=== PATIENT | male | born 1980 | race Two or more races ===

== ENCOUNTER 2025-10-14 15:07 | Outpatient (AMB) | payer OTHER, SELFPAY ==
--- NOTE | 2025-10-14 15:12 | A.PHYSOV_ITS ---
Vital Signs 10/14/25 15:33 Height 5 ft 11 in Weight 205 lb BMI 28.6 Intake Visit Reasons: Wants back inj-last seen almost 6M ago Intake Note: Patient is a 45year old male here today for back pain. 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 He reports that a prior injection provided good pain relief for approximately 7 months, but the pain returned about a month ago. He describes the pain as being in the same location as before, affecting both sides of his lower back. He underwent left L3 -4, L4-5 facet injection with 100% reduction of his pain for 7 months. His pain has returned despite performing her physician directed home exercise plan and using his medications as prescribed. The pain worsens with sitting and bending forward, and he rates his current pain as fluctuating between a 6 out of 10. He has a history of being borderline diabetic. The patient expresses a preference to avoid taking many pills and mentions not wanting to take gabapentin from his regular doctor. He states that [id number] medications like ibuprofen, Motrin, and Tylenol are ineffective for his back pain, though ibuprofen helps his headaches. 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 Pain Description - Onset: The pain recurred about one month ago, after a 7-month period of relief from a previous injection. - Location: Bilateral low back, in the same location as his previous pain. - Severity: The pain level fluctuates between 4, 5, and 6 out of 10. - Exacerbating Factors: Pain is worsened by sitting and bending forward. - Relieving Factors: Leaning backward does not make the pain worse. - Interference with Activities: The pain impacts his ability to perform his job, which involves 12-hour shifts. Procedure: left L3-4, L4-5 facet injection 100% reduction of his pain [facility] Surgical History H/O shoulder surgery History of cholecystectomy Social History Alcohol intake: current Alcohol intake frequency: does not drink Patient Tobacco Use Status: Never used Tobacco Use of substances other than those prescribed or required for medical reasons: Yes Review of Systems Narrative Review of Systems - Musculoskeletal: Reports bilateral low back pain, which is exacerbated by sitting and bending forward. - Endocrine: Reports being borderline diabetic. - Neurological: Reports occasional headaches, which are relieved by ibuprofen. - All other systems were reviewed and are negative. Physical Exam Exam Exam: Physical Exam Lumbar Spine: Examination of his lumbar spine, there is no visible swelling or deformity. He is tender to lower lumbar facets. He does have an increase in pain with facet loading. Special Tests: Lhermittes sign was negative Heel Toe walk is normal Left straight leg raise: Negative Right straight leg raise: Negative Special tests Erika test is negative Ganslen's test is negative SI Joint compression test negative Bell test negative Piriformis stretch is negative Lower Extremities: Full range of motion bilateral lower extremities. No calf pain or edema. Neuro: Sensation: Intact to lower extremities bilaterally Strength L2 (Psoas): 5/5 on the left and 5/5 on the right. L3 (Quads): 5/5 on the left and 5/5 on the right. L4 (Ant tibialis): 5/5 on the left and 5/5 on the right. L5 (EHL) 5/5 on the left and 5/5 on the right. S1 (Gastroc): 5/5 on the left and 5/5 on the right. DTR L4: (Patellar) Left 2 Right 2 S1: (Achilles) Left 2 Right 2 Babinski Downgoing No pathologic clonus. No involuntary movement. Vital Signs: BMI result Body Mass Index 28.6 Assessment & Plan Assessment & Plan (1) Vertebrogenic low back pain: Code(s): M54.51 - Vertebrogenic low back pain Category: Medical (2) Lumbar spondylosis: Code(s): M47.816 - Spondylosis without myelopathy or radiculopathy, lumbar region Category: Medical Plan Pain Management - Analgesia: Current pain level is reported as fluctuating between 4 and 6 out of 10. - A previous injection provided relief for 7 months. - Ibuprofen and Tylenol are reported as ineffective for his back pain. - Activities of Daily Living: The pain is affecting his ability to work his 12- hour shifts. - Adverse Effects: Not discussed. - Aberrant Drug-Related Behaviors: None noted; the patient expresses a desire to avoid taking many pills and refused gabapentin from his primary doctor. - Affect: Not explicitly discussed. Plan Patient was informed and verbally consented to the use of an ambient scribe for clinic note documentation during this visit. 1. Low Back Pain The patient presents with recurrent bilateral low back pain consistent with his prior presentation. Given the good, albeit temporary, relief from his prior injection, a repeat procedure is indicated. The plan is to proceed with bilateral lumbar injections L3-4, L4-5. We will first obtain insurance authorization for the procedure, which is expected within the week. To manage his pain until the injection can be scheduled, a tapering course of oral prednisone will be prescribed. The patient was instructed not to take ibuprofen with the prednisone. The possibility of radiofrequency ablation was briefly discussed as a future option, though it was noted this would take longer to arrange. A follow-up visit is scheduled for three weeks post-injection, which the patient may cancel if he is feeling better. 2. Prediabetes The patient's self-reported history of being borderline diabetic was noted. This was taken into consideration with the decision to prescribe a short course of oral steroids. Discussion Notes I discussed with the patient that his low back pain has recurred after about seven months of relief from his last injection. We reviewed that the pain is now on both sides, and I recommended proceeding with bilateral lumbar injections, explaining this would involve four shots instead of two. I informed him that we cannot perform the procedure today and must first obtain insurance authorization, which should be received this week, with scheduling to follow. To provide interim relief, I recommended a tapering course of oral prednisone and advised him not to take it with any ibuprofen. We briefly discussed radiofrequency ablation as a longer-term option but agreed it would take more time to arrange. My staff will contact him to schedule the injection once approved. A follow-up is set for three weeks after the procedure, but I told him he can cancel it if he is feeling significantly better. Patient Instructions - We will schedule you for injections in both sides of your lower back for your pain. - Our office will need to get approval from your insurance first, and then we will call you to schedule the procedure. - I have sent a prescription for Prednisone, a steroid pill, to your pharmacy to help with pain until your injection. - Take the prednisone as instructed: 3 pills for 3 days, then 2 pills for 3 days, and finally 1 pill for 3 days. - Do not take any ibuprofen (Advil, Motrin) while you are taking the prednisone. - You have a follow-up appointment in three weeks, but you can call our office to cancel it if your pain is better after the injections. Medications: New prednisone 3 tabs po for 3 days, 2 tabs po for 3 days, 1 tab po for 3 days 20 mg PO DAILY 28 tabs 0RF 9 days M47.816 - Spondylosis without myelopathy or radiculopathy, lumbar region, M54.51 - Vertebrogenic low back pain Coding Level of Care Code Tele Est Pt Level 4 (62548) Diagnoses Vertebrogenic low back pain M54.51 Lumbar spondylosis M47.816
[2025-10-14 15:33] VITALS: BMI 28.6
--- OUTSIDE RECORDS SUMMARY | 2025-10-15 00:38 | XMS_ITS | Clinical Summary ---
Author Organization [facility] Address [address] [place] [address] Care Team Providers Care Channel Opener Name Role Phone Albert Salazar Primary Care Provider [phone] Albert Salazar Unavailable Allergies No known active allergies Medications metFORMIN (FORTAMET) 500 mg 24 hr tabletIndicatio ns:Type 2 diabetes mellitus without complication, without long-term current use of insulin (CMS/HCC) Take 1 tablet (500 mg total) by mouth twice a day. Do not crush, chew, or split. 60 tablet 1 01/08/2020 Active cephALEXin (Keflex) 500 mg capsuleIndicati ons:Scrotal abscess Take 1 capsule (500 mg total) by mouth 2 (two) times a day. 20 capsule 07/07/2020 Active Active Problems Problem Noted Date Diagnosed Date Elevated glucose level 01/03/2020 Upper respiratory tract infection 01/02/2020 Immunizations Immunization Administration Dates Next Due Tdap 05/25/2017 Family History Medical History Relation Comments Diabetes Brother 1 Cancer Mother Diabetes Mother Hypertension Mother Diabetes Sister 1 Hypertension Sister 2 Relation Status Comments Brother 1 Brother 2 Alive Daughter Alive Father Father's Brother Alive Father's Sister Alive Maternal Grandfather Alive Maternal Grandmother Alive Mother Alive Mother's Brother Alive Mother's Sister Alive Paternal Grandfather Alive Paternal Grandmother Alive Sister 1 Sister 2 Son Alive Social History Tobacco Use Types Packs/Day Years Used Date Smoking Tobacco: Every Day Cigarettes Smokeless Tobacco: Never Tobacco Cessation:Ready to Q uit: No; Counseling Given: Yes Alcohol Use Standard Drinks/Week Comments Yes 0 (1 standard drink = 0.6 oz pur e alcohol) AUDIT-C Answer Date Recorded Q1: How often do you have a drink containing alc ohol? 2-4 times a month 07/10/2020 Average Number of Drinks Not on file 020 Frequency of Binge Drinking Not on file 01/2020 Sex and Gender Information Value Date Recorded Sex Assigned at Not on file Legal Sex Male 12:26 PM MST Gender Identity Not on file Sexual Orientation Not on file Last Filed Vital Signs Vital Sign Reading Time Taken Comments Blood Pressure 134/85 07/10/2020 9:56 AM EDT Pulse 77 07/10/2020 9:56 AM EDT Temperature 36.3 C (97.3 F) 07/10/2020 9:56 AM EDT Respiratory Rate 16 07/10/2020 9:56 AM EDT Oxygen Saturation 98% 07/10/2020 9:56 AM EDT Inhaled Oxygen Concentration - - Weight 90.4 kg (199 lb 3.2 oz) 07/10/2020 9:56 A M EDT Height 182.3 cm (5' 11.77 ) 07/07/2020 10:51 AM EDT Body Mass Index 27.19 07/07/2020 10:51 AM EDT Plan of Treatment Health Maintenance Due Date Last Done Comments Hepatitis C Screening 1982 MMR Vaccines (1 of 1 - Standard series) 1983 PHQ-9 Depression Screen 1994 Varicella Vaccines (1 of 2 - 13+ 2-dose series) 1995 Complete Annual HRA 2000 JOSE ANGEL-7 Anxiety Screen 2000 Hepatitis B Vaccines (1 of 3 - 19+ 3-dose series) 2001 Annual Preventive Exam 01/02/2021 01/02/2020, 2018 COVID-19 Vaccine ( - 2023- season) 2025 Influenza Vaccine (#1) 2025 DTaP,Tdap,and Td Vaccines (2 - Td or Tdap) 05/25/2027 05/25/2017 RSV Vaccine (SCDM) (1 - 1-dose 75+ series) 2057 Insurance [employer] Care Teams Channel Opener Relationship Specialty Start Date End Date Albert Salazar PA [address] [place] [address] PCP - General Family Medicine 07/07/20 Albert Salazar PA [address] [place] [address] Family Medicine 07/07/20
--- OUTSIDE RECORDS SUMMARY | 2025-10-15 00:38 | XMS_ITS | Clinical Summary ---
Author Organization [facility] Address [address] [place] [address] Phone Care Team Providers Care High Risk Ob Name Role Phone Wong Alfredo MD Primary Care Provider [phone] Allergies Active Allergy Reactions Criticality Noted Date Comments Levofloxacin High 09/28/2019 Other Reaction(s): SWELLING OF EYES AND FACE Metronidazole High 09/28/2019 Other Reaction(s): FACIAL SWELLING Medications varenicline (CHANTIX YULIET) 0.5 mg (11)- 1 mg (42) tabletIndicatio ns:Tobacco dependency Use as directed on package instructions, try to quit smoking after 1 week. 53 tablet 2 09/25/2024 Active nicotine polacrilex (COMMIT) 4 mg lozengeIndicati ons:smoking cessation Dissolve 1 lozenge (4 mg total) in the mouth every 2 (two) hours if needed for smoking cessation. 90 lozenge 3 11/16/2024 Active gabapentin (NEURONTIN) 400 mg capsuleIndicati ons:Chronic left-sided low back pain with left-sided sciatica Take 1 capsule (400 mg total) by mouth 3 (three) times a day if needed (back pain). 90 each 02/21/2025 02/22/20 26 Active tiZANidine (ZANAFLEX) 4 mg tabletIndicatio ns:Chronic left-sided low back pain with left-sided sciatica Take 1 tablet (4 mg total) by mouth 1 (one) time each day if needed for muscle spasms. 60 tablet 3 02/21/2025 Active metFORMIN (GLUCOPHAGE) 500 mg tablet Take 1 tablet (500 mg total) by mouth 2 (two) times a day with meals. 180 each 1 08/27/2025 Active Active Problems Problem Noted Date Diagnosed Date Elevated transaminase level 09/24/2025 Diverticulitis of large inte maura with perforation and abscess without bleeding 09/25/2024 S/P laparoscopic-assisted sigmoidectomy 09/25/20 24 Tobacco use 09/25/2024 Encounters Date Type Department Care Team Description 10/04/2025 10:40 AM EST - 10/04/2025 11:59 PM EST Hospital Encounter [facility] Ultrasound [address] [place] [id number] Elevated transaminase level Discharge Disposition: Home or Self Care 09/24/2025 1:00 PM EST Office Visit Gastroenterology - [address] [facility] [address] [facility] [address] [place] [phone] Madhu Cloud MD Elevated transaminase level (Primary Dx); S/P laparoscopic-assisted sigmoidectomy; Diverticulitis of large intestine with perforation and abscess without bleeding 08/29/2025 Results Follow-Up Internal Medicine - [place] [address] [facility] [address] [place] [phone] Wong Alfredo MD 08/27/2025 1:00 PM EDT Office Visit Internal Medicine [facility] [address] [facility] [address] [place] [phone] Wong Alfredo MD Type 2 diabetes mellitus without complication, without long-term current use of insulin ([facility] V24, [facility] V28) (Primary Dx); Hypercholesterolemia; Elevated blood pressure reading; Smoker from Last 3 Months Surgical History Surgery Date Site/Laterality Comments SIGMOIDECTOMY Medical History Medical History Date Comments Diverticulitis large intestine Social History Tobacco Use Types Packs/Day Years Used Date Smoking Tobacco: Every Day Cigarettes Smokeless Tobacco: Current Tobacco Cessation:Ready to Q uit: Not Asked; Counseling Given: Not Answered Alcohol Use Standard Drinks/Week Comments Yes 24 (1 standard drink = 0.6 oz pu re alcohol) Housing Instability Answer Date Recorde d Are you worried that in the next 2 months you may not have stable housing? No 11/14/2024 Food Access & Nutrition Answer Date Rec orded Do you have access to a vari ety of food including fruits and vegetables? Yes 11/14/2024 Access to Healthcare Answer Date Record ed Within the last 3 months, ho w many times did you visit the emergency department for your medical care? 0 11/14/2024 Health Literacy Answer Date Recorded How often do you need to hav e someone help you when you read instructions, pamphlets, or other written material from your doctor or pharmacy? Never 11/14/2024 Caregiver: How often do you need to have someone help you when you read instructions, pamphlets, or other written material from your doctor or pharmacy? Not on file 11/14/2024 Financial Risk Answer Date Recorded How hard is it for you to pa y for the very basics like food, housing, medical care, and air conditioning / heating? Not very hard 11/14/2024 Transportation Answer Date Recorded Has the lack of transportati on kept you from meetings, work, or from getting things needed for daily living? No Has the lack of transportati on kept you from medical appointments or from getting medications? No 11/14/2024 Social Isolation Answer Date Recorded How often do you feel lonely or isolated from th ose around you? Never 11/14/2024 Food Risk Answer Date Recorded Within the past 12 months we worried whether our food would run out before we got money to buy more. Sometimes true 025 Within the past 12 months th e food we bought just didn't last and we didn't have money to get more. Never true 11/14/2024 Dependent Care Answer Date Recorded Do you need help finding or paying for care for your loved ones. For example, child welfare worker or elderly care for an older adult? No 11/14/2024 Education Answer Date Recorded Do you think completing more education or training, like finishing a GED, going to college, or learning a trade, would be helpful for you? N/A 11/14/2024 Employment and Income Answer Date Recor ded During the last four weeks, have you been actively looking for work? No 11/14/2024 Living Situation Answer Date Recorded What is your living situation? Unrecognized valu e 11/14/2024 Interpersonal Safety Answer Date Record ed Physical Abuse Unrecognized value 09/26/2024 Verbal Abuse Unrecognized value 09/26/2024 Sex and Gender Information Value Date Recorded Sex Assigned at Male 09/24/2025 4:30 PM EST Legal Sex Male 10:10 PM EST Gender Identity Not on file Sexual Orientation Not on file Last Filed Vital Signs Vital Sign Reading Time Taken Comments Blood Pressure 122/78 09/24/2025 1:05 PM EST Pulse 76 09/24/2025 1:05 PM EST Temperature 35.9 C (96.6 F) 08/27/2025 1:14 PM EDT Respiratory Rate 20 02/10/2025 9:20 PM EDT Oxygen Saturation 97% 08/27/2025 1:14 PM EDT Inhaled Oxygen Concentration - - Weight 91.2 kg (201 lb) 09/24/2025 1:05 PM EST Height 180.3 cm (5' 11 ) 09/24/2025 1:05 PM EST Body Mass Index 28.03 09/24/2025 1:05 PM EST Plan of Treatment Upcoming Encounters Date Type Department Care Team (Late st Contact Info) Description 12/31/2025 9:45 AM EST Office Visit Internal Medicine - [place] [address] [place] [phone] Wong Alfredo MD [address] [place] [address] Health Maintenance Due Date Last Done Comments Diabetes: Annual Foot Exam 1992 Diabetes: Annual Retina Eye Exam 1992 Hepatitis B Vaccines (1 of 3 - 19+ 3-dose series) 2001 Pneumococcal Vaccine: Pediatrics (0 to 5 Years) and At-Risk Patients (6 to 49 Years) (1 of 2 - PCV) 2001 HPV Vaccines (1 - 3-dose SCDM series) 2009 COVID-19 Vaccine ( - season) 2025 Influenza Vaccine (#1) 2025 Diabetes: Annual Urine Albumin-Creatinine Ratio (uACR) 08/27/2025 Social Influencers of Health Screening 11/14/2025 11/14/2024 Diabetes: Blood Sugar Control Test (HGBA1C) 02/26/2026 08/28/2025, 09/25/2024 Diabetes: Annual GFR (Glomerular Filtration Rate) 08/28/2026 08/28/2025, 02/10/2025, 09/25/2024, Additional history exists DTaP,Tdap,and Td Vaccines (2 - Td or Tdap) 05/25/2027 05/25/2017 Cholesterol Screening (Lipid Panel) 08/28/2030 08/28/2025, 09/25/2024 Colorectal Cancer Screening: Colonoscopy 09/26/2034 09/26/2024 RSV Immunization Adult Patients (1 - 1-dose 75+ series) 2057 HIV Screening Completed 09/25/2024 Hepatitis C Screening Completed 09/25/2024 Depression Screening Completed 11/14/2024 HIB Vaccines Aged Out No longer eligi ble based on patient's age to complete this topic Hepatitis A Vaccines Aged Out No long er eligible based on patient's age to complete this topic IPV Vaccines Aged Out No longer eligi ble based on patient's age to complete this topic MMR Vaccines Aged Out No longer eligi ble based on patient's age to complete this topic Meningococcal ACWY Vaccine Aged Out N o longer eligible based on patient's age to complete this topic Meningococcal B Vaccine Aged Out No l onger eligible based on patient's age to complete this topic RSV Immunization Patients Under 20 months Aged Out No longer eligible based on patient's age to complete this topic Varicella Vaccines Aged Out No longer eligible based on patient's age to complete this topic Goals Goal Patient Goal Type Associated Problems Recent Progress Patient-Stated? Author STG (4 visits) General Talita Cook, PT Note: Pt will demonstrate compliance with HEP Pt will report centralization of radicular symptoms Pt will increase hamstring length to -40 deg on L Pt will increase hip extensor MMT to 4/5 LTG (8 visits) General Talita Cook, PT Note: Pt will demonstrate independence with HEP Pt will report no radicular symptoms Pt will report decreased pain level to < 2/10 at worst Pt will demonstrate full pain-free lumbar AROM Pt will increase hip MMT to 5/5 Pt will increase hip IR PROM to WNL Pt will increase hamstring length to -30 deg Procedures Procedure Name Priority Date/Time Associated Diagnosis Comments US ABDOMEN LIMITED Routine 10/04/2025 11 :14 AM EST Elevated transaminase level CBC WITH AUTO DIFFERENTIAL Routine 08/28/2025 11:05 AM EDT Type 2 diabetes mellitus without complication, without long-term current use of insulin ([facility] V24, [facility] V28) Hypercholesterolemi a Elevated blood pressure reading Smoker CBC AND DIFFERENTIAL Routine 08/28/2025 11:05 AM EDT Type 2 diabetes mellitus without complication, without long-term current use of insulin ([facility] V24, [facility] V28) Hypercholesterolemi a Elevated blood pressure reading Smoker COMPREHENSIVE METABOLIC PANEL Routine 08/28/2025 11:05 AM EDT Type 2 diabetes mellitus without complication, without long-term current use of insulin ([facility] V24, [facility] V28) Hypercholesterolemi a Elevated blood pressure reading Smoker LIPID PANEL WITH REFLEX TO DIRECT LDL Routine 08/28/2025 11:05 AM EDT Type 2 diabetes mellitus without complication, without long-term current use of insulin ([facility] V24, [facility] V28) Hypercholesterolemi a Elevated blood pressure reading Smoker THYROID STIMULATING HORMONE Routine 08/28/2025 11:05 AM EDT Type 2 diabetes mellitus without complication, without long-term current use of insulin ([facility] V24, [facility] V28) Hypercholesterolemi a Elevated blood pressure reading Smoker HEMOGLOBIN A1C Routine 08/28/2025 11:05 AM EDT Type 2 diabetes mellitus without complication, without long-term current use of insulin ([facility] V24, [facility] V28) Hypercholesterolemi a Elevated blood pressure reading Smoker COLONOSCOPY Routine 09/26/2024 7:52 AM EST Diverticulitis HEPATITIS C ANTIBODY Routine 09/25/2024 9:55 AM EST Screen for STD (sexually transmitted disease) HIV 1, 2 ANTIBODY, P24 ANTIGEN WITH REFLEX TO DIFFERENTIATION Routine 09/25/2024 9:55 AM EST Screen for STD (sexually transmitted disease) from Last 3 Months or Most Recently Relevant to Health Maintenance Results * US Abdomen Limited (10/04/2025 11:14 AM EST) Anatomical Region Laterality Modality Body Ultrasound 10/07/2025 6:12 PM EST Impressions 10/07/2025 6:14 PM EST Hepatic steatosis. -------- FINAL REPORT -------- Dictated By: Emmanuel Meeks Dictated Date: 10/07/2025 18:12 ET Assigned Physician: Emmanuel Meeks Reviewed and Electronically Signed By: Emmanuel Meeks Signed Date: 10/07/2025 18:14 ET Workstation ID: [id number] Transcribed By: Self Edit Transcribed Date: 10/07/2025 18:12 ET Narrative 10/07/2025 6:14 PM EST Exam: US ABDOMEN LIMITED Date of Study: 10/04/2025 10:44 AM CLINICAL INFORMATION: elevated transaminase TECHNIQUE: Real-time ultrasound scanning of the region of interest performed by the stripping machine operator. Commutator Tester static images and video clips are submitted for review. FINDINGS: Liver measures 19 cm with increased echogenicity. Visible portions of the pancreas are unremarkable. There is evidence of adenomyomatosis and possible tiny gallbladder polyp.. The gallbladder is nondistended without wall thickening. No biliary dilitation. Bile duct measures 3 mm. No evidence for right kidney mass or hydronephrosis. No ascites. Spleen measures 11.8 cm. Procedure Note Emmanuel Meeks MD - 10/07/2025 Exam: US ABDOMEN LIMITED Date of Study: 10/04/2025 10:44 AM CLINICAL INFORMATION: elevated transaminase TECHNIQUE: Real-time ultrasound scanning of the region of interestperformed by the stripping machine operator. Commutator Tester static images and video clipsare submitted for review. FINDINGS: Liver measures 19 cm with increased echogenicity. Visible portions of the pancreas are unremarkable. There is evidence of adenomyomatosis and possible tiny gallbladder polyp..The gallbladder is nondistended without wall thickening. No biliary dilitation. Bile duct measures 3 mm. No evidence for right kidney mass or hydronephrosis. No ascites. Spleen measures 11.8 cm. IMPRESSION: Hepatic steatosis. -------- FINAL REPORT -------- Dictated By: Emmanuel Meeks Dictated Date: 10/07/2025 18:12 ET Assigned Physician: Emmanuel Meeks Reviewed and Electronically Signed By: Emmanuel Meeks Signed Date: 10/07/2025 18:14 ET Workstation ID: [id number] Transcribed By: Self Edit Transcribed Date: 10/07/2025 18:12 ET us Madhu Cloud MD IM US PROCEDURES Final Result * (ABNORMAL) Lipid panel with reflex to direct LDL (08/28/2025 11:05 AM EDT) Cholesterol 154 0 - 200 mg/dL LAB CHEMISTRY METHOD 08/28/2025 4:28 PM EDT [facility] Triglycerides 174(H) 0 - 150 mg/dL LAB CHEMISTRY METHOD 08/28/2025 4:[address] [facility] HDL 38(L) >=40 mg/dL LAB CHEMISTRY METHOD 08/28/2025 4:28 PM T [facility] LDL Calculated 81 0 - 100 mg/dL LAB CHEMISTRY METHOD 08/28/2025 4:28 PM EDT [facility] Comment:Estimated LDL Calcul ated using equation: Total cholesterol - HDL cholesterol - (Triglycerides/5) VLDL Cholesterol Manny 34.8 mg/dL LAB CHEMISTRY METHOD 08/28/2025 4:[address] [facility] Non HDL Chol. (LDL+VLDL) 116 <145 mg/dL LAB CHEMISTRY METHOD 08/28/2025 4:28 PM T [facility] Chol/HDL Ratio 4.1 0.0 - 4.4 LAB CHEMISTRY METHOD 08/28/2025 4:[address] [facility] Blood Venous blood specimen / Unknown Venipuncture / Unknown 08/28/2025 11:05 AM EDT 08/28/2025 11:05 AM EDT us Wong Alfredo MD LAB BLOOD ORDERABLES Final Resul t [facility] [address] [place] [address], * CBC auto differential (08/28/2025 11:05 AM EDT) WBC 9.9 4.8 - 10.8 K/mcL LAB HEMETOLOGY METHOD 08/28/2025 2:16 PM EDT [facility] RBC 5.40 4.50 - 5.50 M/mcL LAB HEMETOLOGY METHOD 08/28/2025 2:16 PM EDT [facility] Hemoglobin 16.5 13.5 - 17.5 g/dL LAB HEMETOLOGY METHOD 08/28/2025 2:16 PM EDT [facility] Hematocrit 50.7 42.0 - 54.0 % LAB HEMETOLOGY METHOD 08/28/2025 2:16 PM EDT [facility] MCV 93.5 79.0 - 98.0 FL LAB HEMETOLOGY METHOD 08/28/2025 2:16 PM EDT [facility] MCH 30.4 27.0 - 32.0 pcg LAB HEMETOLOGY METHOD 08/28/2025 2:16 PM EDT [facility] MCHC 32.5 32.0 - 37.0 g/dL LAB HEMETOLOGY METHOD 08/28/2025 2:16 PM EDT [facility] RDW 11.9 11.0 - 15.0 % LAB HEMETOLOGY METHOD 08/28/2025 2:16 PM EDT [facility] Platelets 362 130 - 400 K/mcL LAB HEMETOLOGY METHOD 08/28/2025 2:16 PM EDT [facility] MPV 10.3 7.0 - 11.0 FL LAB HEMETOLOGY METHOD 08/28/2025 2:16 PM EDT [facility] NRBC 0.0 <1.0 % LAB HEMETOLOGY METHOD 08/28/2025 2:16 PM EDT [facility] NRBC Absolute 0.00 <0.10 K/mcL LAB HEMETOLOGY METHOD 08/28/2025 2:16 PM EDT [facility] Neutrophils Relative 52.7 % LAB HEMETOLOGY METHOD 08/28/2025 2:16 PM EDT [facility] Lymphocytes Relative 37.6 % LAB HEMETOLOGY METHOD 08/28/2025 2:16 PM EDT [facility] Monocytes Relative 5.0 % LAB HEMETOLOGY METHOD 08/28/2025 2:16 PM EDT [facility] Eosinophils Relative 3.8 % LAB HEMETOLOGY METHOD 08/28/2025 2:16 PM EDT [facility] Basophils Relative 0.7 % LAB HEMETOLOGY METHOD 08/28/2025 2:16 PM EDT [facility] Immature Granulocytes Relative 0.2 % LAB HEMETOLOGY METHOD 08/28/2025 2:16 PM EDT [facility] Neutrophils Absolute 5.23 1.50 - 7.00 K/mcL LAB HEMETOLOGY METHOD 08/28/2025 2:16 PM EDT [facility] Lymphocytes Absolute 3.73 1.00 - 5.00 K/mcL LAB HEMETOLOGY METHOD 08/28/2025 2:16 PM EDT [facility] Monocytes Absolute 0.50 0.20 - 1.00 K/mcL LAB HEMETOLOGY METHOD 08/28/2025 2:16 PM EDT [facility] Eosinophils Absolute 0.38 0.00 - 0.50 K/mcL LAB HEMETOLOGY METHOD 08/28/2025 2:16 PM EDT [facility] Basophils Absolute 0.07 0.00 - 0.20 K/mcL LAB HEMETOLOGY METHOD 08/28/2025 2:16 PM EDT [facility] Immature Granulocytes Absolute 0.02 0.00 - 0.03 K/mcL LAB HEMETOLOGY METHOD 08/28/2025 2:16 PM EDT [facility] Blood Venous blood specimen / Unknown Venipuncture / Unknown 08/28/2025 11:05 AM EDT 08/28/2025 11:05 AM EDT us Wong Alfredo MD LAB BLOOD ORDERABLES Final Resul t Performing Organization Address [facility] Co de Phone Number [facility] [address] [place] [address], [place] [phone] * Thyroid stimulating hormone (08/28/2025 11:05 AM EDT) Pathologist [facility] TSH 1.39 0.40 - 4.00 mcIU/mL LAB CHEMISTRY METHOD 08/28/2025 4:57 PM EDT [facility] Blood Venous blood specimen / Unknown Venipuncture / Unknown 08/28/2025 11:05 AM EDT 08/28/2025 11:05 AM EDT us Wong Alfredo MD LAB BLOOD ORDERABLES Final Resul t Performing Organization Address [facility] de Phone Number [facility] [address] [place] [address], [place] [phone] * (ABNORMAL) Hemoglobin A1c (08/28/2025 11:05 AM EDT) Hemoglobin A1C 9.8(H) <6.5 % LAB CHEMISTRY METHOD 08/28/2025 9:14 PM EDT [facility] Mean Bld Glu Estim. 235 mg/dL LAB CHEMISTRY METHOD 08/28/2025 9:14 PM EDT [facility] Blood Venous blood specimen / Unknown Venipuncture / Unknown 08/28/2025 11:05 AM EDT 08/28/2025 11:05 AM EDT us Wong Alfredo MD LAB BLOOD ORDERABLES Final Resul t [facility] [address] [place] [address], [place] [phone] * (ABNORMAL) Comprehensive metabolic panel (08/28/2025 11:05 AM EDT) Sodium 136 133 - 145 mmol/L LAB CHEMISTRY METHOD 08/28/2025 4:[address] [facility] Potassium 4.1 3.5 - 5.5 mmol/L LAB CHEMISTRY METHOD 08/28/2025 4:[address] [facility] Chloride 102 96 - 110 mmol/L LAB CHEMISTRY METHOD 08/28/2025 4:[address] [facility] CO2 29 21 - 32 mmol/L LAB CHEMISTRY METHOD 08/28/2025 4:[address] [facility] Anion Gap 5 3 - 11 LAB CHEMISTRY METHOD 08/28/2025 4:[address] [facility] Glucose 194(H) 70 - 100 mg/dL LAB CHEMISTRY METHOD 08/28/2025 4:[address] [facility] BUN 9 5 - 25 mg/dL LAB CHEMISTRY METHOD 08/28/2025 4:[address] [facility] Creatinine 0.87 0.70 - 1.30 mg/dL LAB CHEMISTRY METHOD 08/28/2025 4:[address] [facility] eGFR 110 >=60 mL/min/1. 73m2 LAB CHEMISTRY METHOD 08/28/2025 4:[address] [facility] Comment:Calculation based on the Chronic Kidney Disease Epidemiology Collaboration (CKD-EPI) equation refit without adjustment for race. BUN/Creatinine Ratio 10.3 LAB CHEMISTRY METHOD 08/28/2025 4:[address] [facility] Calcium 9.5 8.5 - 10.5 mg/dL LAB CHEMISTRY METHOD 08/28/2025 4:28 PM EDT [facility] AST (SGOT) 42 10 - 42 unit/L LAB CHEMISTRY METHOD 08/28/2025 4:28 PM EDT [facility] ALT (SGPT) 80(H) 10 - 60 unit/L LAB CHEMISTRY METHOD 08/28/2025 4:28 PM EDT [facility] Alkaline Phosphatase 139(H) 42 - 121 unit/L LAB CHEMISTRY METHOD 08/28/2025 4:28 PM EDT [facility] Total Protein 7.3 6.0 - 8.0 g/dL LAB CHEMISTRY METHOD 08/28/2025 4:28 PM EDT [facility] Albumin 4.0 3.2 - 5.0 g/dL LAB CHEMISTRY METHOD 08/28/2025 4:[address] [facility] Total Bilirubin 0.7 0.0 - 1.4 mg/dL LAB CHEMISTRY METHOD 08/28/2025 4:28 PM EDT [facility] Blood Venous blood specimen / Unknown Venipuncture / Unknown 08/28/2025 11:05 AM EDT 08/28/2025 11:05 AM EDT us Wong Alfredo MD LAB BLOOD ORDERABLES Final Resul t [facility] [address] [place] [address], * COLONOSCOPY Anesthesia - MAC; [facility]COPY (09/26/2024 7:52 AM EST) Anatomical Region Laterality Modality Other 09/26/2024 7:39 AM EST Impressions 09/26/2024 7:54 AM EST - Patent end-to-end colo-colonic anastomosis, characterized by healthy appearing mucosa and an intact staple line. - No specimens collected. Recommendation: - Repeat colonoscopy in 10 years for screening purposes. Narrative 09/26/2024 7:[address] [facility] GI Patient Name: Hebert Roberson Procedure Date: 09/26/2024 7:39 AM Date of : 1980 Age: 44 Gender: Male Note Status: Finalized Attending MD: Madhu Cloud MD, Procedure Date No Time: 09/26/2024 Procedure: Colonoscopy Indications: Screening for colorectal malignant neoplasm Providers: Madhu Cloud MD Referring MD: Madhu Cloud MD Medicines: Propofol per Anesthesia Complications: No immediate complications. Estimated Blood Loss: Estimated blood loss: none. Procedure: Pre-Anesthesia Assessment: - ASA Grade Assessment: II - A patient with mild systemic disease. After I obtained informed consent, the scope was passed under direct vision. Throughout the procedure, the patient's blood pressure, pulse, and oxygen saturations were monitored continuously.The Colonoscope was introduced through the anus and advanced to the cecum, identified by appendiceal orifice and ileocecal valve. The colonoscopy was performed without difficulty. The patient tolerated the procedure well. The quality of the bowel preparation was adequate. Findings: The perianal and digital rectal examinations were normal. There was evidence of a prior end-to-end colo-colonic anastomosis in the sigmoid colon. This was patent and was characterized by healthy appearing mucosa and an intact staple line. The anastomosis was traversed. Procedure Code(s): --- Professional --- G0121, Colorectal cancer screening; colonoscopy on individual not meeting criteria for high risk Diagnosis Code(s): --- Professional --- Z12.11, Encounter for screening for malignant neoplasm of colon Z98.0, Intestinal bypass and anastomosis status CPT copyright 2020 [employer]. All rights reserved. The codes documented in this report are preliminary and upon um rn review may be revised to meet current compliance requirements. Madhu Cloud MD 09/26/2024 7:54:11 AM This report has been signed electronically.Madhu Cloud MD Number of Addenda: 0 Note Initiated On: 09/26/2024 7:39 AM Scope In: Scope Out: Endoscopy Department at [facility] - [address] [place] [address] [id number] Procedure Note Madhu Cloud MD - 09/26/2024 [facility] Patient Name: Hebert Roberson Procedure Date: 09/26/2024 7:39 AM Date of : 1980 Age: 44 Gender: Male Note Status: Finalized Attending MD: Madhu Cloud MD, Procedure Date No Time: 09/26/2024 Procedure: Colonoscopy Indications: Screening for colorectal malignant neoplasm Providers: Madhu Cloud MD Referring MD: Madhu Cloud MD Medicines: Propofol per Anesthesia Complications: No immediate complications. Estimated Blood Loss: Estimated blood loss: none. Procedure: Pre-Anesthesia Assessment: - ASA Grade Assessment: II - A patient with mild systemic disease. After I obtained informed consent, the scope was passed under direct vision. Throughout theprocedure, the patient's blood pressure, pulse, and oxygen saturations were monitored continuously.The Colonoscope was introduced through the anus and advanced to the cecum, identified by appendiceal orifice and ileocecal valve. The colonoscopy was performed without difficulty. The patient tolerated the procedure well. The quality of the bowel preparation was adequate. Findings: The perianal and digital rectal examinations were normal. There was evidence of a prior lkb-qo-gguhjgx-colonic anastomosis in the sigmoid colon. This was patentand was characterized by healthy appearing mucosa andan intact staple line. The anastomosis wastraversed. Procedure Code(s): --- Professional --- G0121, Colorectal cancer screening; colonoscopy on individual not meeting criteria for high risk Diagnosis Code(s): --- Professional --- Z12.11, Encounter for screening for malignantneoplasm of colon Z98.0, Intestinal bypass and anastomosis status CPT copyright 2020 [employer]. All rights reserved. The codes documented in this report are preliminary and upon um rn reviewmay be revised to meet current compliance requirements. Madhu Cloud MD 09/26/2024 7:54:11 AM This report has been signed electronically.Madhu Cloud MD Number of Addenda: 0 Note Initiated On: 09/26/2024 7:39 AM Scope In: Scope Out: Endoscopy Department at [facility] - [address] [place] [id number] IMPRESSION: - Patent end-to-end colo-colonic anastomosis, characterized by healthy appearing mucosa and an intact staple line. - No specimens collected. Recommendation: - Repeat colonoscopy in 10 years for screening purposes. Madhu Cloud MD GI~PROCEDURE ORDERABLES Final Re sult * Hepatitis C antibody (09/25/2024 9:55 AM EST) Hepatitis C Antibody Negative Negative LAB CHEMISTRY METHOD 09/25/2024 3:46 PM EST [facility] Blood Venous blood specimen / Unknown Venipuncture / Unknown 09/25/2024 9:55 AM EST 09/25/2024 9:56 AM EST Sanchez Adorno NP LAB BLOOD ORDERABLES Final Resul t Performing Organization Address [facility] Co de Phone Number [facility] [address] [place] [address], * HIV 1,2 antibody, p24 antigen with reflex to differentiation (09/25/2024 9:55 AM EST) HIV Combo AB/AG Negative Negative LAB CHEMISTRY METHOD 09/25/2024 3:47 PM EST [facility] Blood Venous blood specimen / Unknown Venipuncture / Unknown 09/25/2024 9:55 AM EST 09/25/2024 9:56 AM EST Narrative [facility] - 09/25/2024 3:47 PM EST This assay is a 4th generation assay allowing for earlier detection of HIV infection by detecting the presence of the HIV-1 p24 antigen as well as the traditional antibodies to HIV type 1 (including group O) and type 2. Use of a 4th generation assay is the current CDC recommendation for HIV screening. us Sanchez Adorno NP LAB BLOOD ORDERABLES Final Resul t Performing Organization Address [facility]/ZIP Co de Phone Number [facility] [address] [place] [address], from Last 3 Months or Most Recently Relevant to Health Maintenance Insurance [employer] Care Teams High Risk Ob Relationship Specialty Start Date End Date Wong Alfredo MD [address] [place] [id number] PCP - General Internal Medicine 08/14/24
--- OUTSIDE RECORDS SUMMARY | 2025-10-15 00:38 | XMS_ITS | Encounter Summary ---
Author Organization [facility] Address [address] [place] [address] Care Team Providers Care Pumper Gager Apprentice Name Role Phone Wong Alfredo MD Primary Care Provider Encounter Details Date Type Department Care Team ([facility] st Contact Info) Description 08/29/2025 Results Follow-Up Internal Medicine - [place] 175 [facility] [address] [place] [phone] Wong Alfredo MD 175 [facility] [address] [place] [address] Social History Tobacco Use Types Packs/Day Years Used Date Smoking Tobacco: Every Day Cigarettes Smokeless Tobacco: Current Alcohol Use Standard Drinks/Week Comments Yes 24 [...] care for your loved ones. For example, children's institution attendant or elderly care for an older adult? [...] on file Sexual Orientation Not on file documented as of this encounter Functional Status * Are you deaf or do you have serious difficulty hearing? Answer Date of Assessment Author No 02/10/2025 7:19 PM EDT Mindi Shetty RN * Are you blind or do you have serious difficulty seeing, even when wearing glasses? Answer Date of Assessment Author No 02/10/2025 7:19 PM EDT Mindi Shetty RN * Do you have serious difficulty walking or climbing stairs? Answer Date of Assessment Author No 02/10/2025 7:19 PM EDT Mindi Shetty RN * Do you have serious difficulty dressing or bathing? Answer Date of Assessment Author No 02/10/2025 7:19 PM EDT Mindi Shetty RN * Because of a physical, mental, or emotional condition, do you have serious difficulty doing errandsalone such as visiting the doctor? Answer Date of Assessment Author No 02/10/2025 7:19 PM EDT Mindi Shetty RN documented as of this encounter Mental Status * Because of a physical, mental, or emotional condition, do you have serious difficulty concentrating, remembering, or making decisions? (5 years old or older) Answer Entry Date Author No 02/10/2025 7:19 PM EDT Mindi Shetty RN documented in this encounter Plan of Treatment Upcoming Encounters Date Type Department Care Team (Late st Contact Info) Description 12/31/2025 9:45 AM EST Office Visit Internal Medicine - [place] [address] [facility] [address] [place] [phone] Wong Alfredo MD 175 [facility] [address] [place] [address] documented as of this encounter Goals Goal Patient Goal Type Associated Problems [...] will increase hamstring length to -30 deg documented as of this encounter Visit Diagnoses Not on filedocumented in this encounter Additional Health Concerns Assessment Noted Time PHQ-9 Depression Total Score: 0 01/08/20 25 5:29 PM EST documented as of this encounter Care Teams Pumper Gager Apprentice Relationship Specialty Start Date End Date Wong Alfredo MD [address] [id number] PCP - General Internal Medicine 08/14/24 documented as of this encounter
== END 2025-10-14 16:03 | disposition home or self-care (01) ==
LOC: HO.HPHYS 15:07
PROVIDERS: PCP Internal Medicine; Visit Provider Physician Assistant
DX: M54.51 Vertebrogenic low back pain (principal); M47.816 Spondylosis without myelopathy or radiculopathy, lumbar region
CPT/HCPCS: 99214